=== PATIENT | male | born 1935 | race Caucasian/White ===

== ENCOUNTER 2023-05-13 19:53 | Inpatient (IN) | payer OTHER ==
[~2023-05-13] VITALS: Ht 152.4 cm; Wt 6.8 kg
[2023-05-13] MEDS ORDERED: METHYLPREDNISOLONE SOD SUCC 125MG/2ML (ACT-O-VIAL) IV STA (20:06)
[2023-05-13] MEDS ORDERED: ALBUTEROL (0.083%) 2.5MG/3ML NEB HHN STA (20:06)
[2023-05-13] MEDS ORDERED: IPRATROPIUM BROMIDE (0.02%) 0.5MG/2.5ML NEB HHN STA (20:06)
[2023-05-13 20:40] LABS: HEMATOCRIT. 41.9 % (42.0-52.0); HEMOGLOBIN. 13.6 g/dL (14.0-18.0); MEAN CORPUSCULAR HEMOGLOBIN 30.2 pg (28.0-32.0); MEAN CORPUSCULAR HGB CONC 32.6 g/dL (31.0-37.0); MEAN CORPUSCULAR VOLUME 92.7 fL (80.0-94.0); MEAN PLATELET VOLUME 8.3 fl (7.4-10.4); PLATELET 130 x1000/uL (130-400); RED BLOOD CELL COUNT 4.52 mill/uL (4.7-6.1); RED CELL DISTRIBUTION WIDTH 14.2 % (11.6-14.6); WHITE BLOOD COUNT 8.6 x1000/uL (4.5-11.0)
[2023-05-13 20:43] LABS: DIFFERENTIAL COMMENT 1
[2023-05-13 20:49] LABS: INR 1.1; PROTHROMBIN TIME 12.2 sec (9.6-11.0)
[2023-05-13 20:50] VITALS: RESP 27
[2023-05-13 20:50] LABS: CHLORIDE 99 mEq/L (98-107); INDEX HEMOLYSI 1 (1-3); INDEX ICTERIC 1 (1-4); INDEX LIPEMIC 1 (1-3); POTASSIUM 4.1 mEq/L (3.5-5.1); SODIUM 137 mEq/L (136-145)
[2023-05-13 20:59] LABS: ALANINE AMINOTRANSFERASE 47 IU/L (13-61); ALBUMIN 3.6 g/dL (3.4-5.0); ASPARTATE AMINOTRANSFERASE 56 IU/L (15-37); BILIRUBIN TOTAL 0.9 mg/dL (0.1-1.0); CALCIUM 9.4 mg/dL (8.5-10.1); CARBON DIOXIDE 34 mEq/L (21-32); CREATININE 0.6 mg/dL (0.6-1.3); GLUCOSE 172 mg/dL (70-105); NT PRO B-TYPE NATRIURETIC PEP 3109 pg/mL (5-125); PROTEIN TOTAL 8.8 g/dL (6.0-8.3); UREA NITROGEN BLOOD 13 mg/dL (7-21)
[2023-05-13 21:02] LABS: PLATELET ESTIMATE NORMAL
[2023-05-13 21:12] LABS: LACTIC ACID 2.5 mmol/L (0.4-2.0); TROPONIN I HIGH SENSITIVITY 290 ng/L (<78)
[2023-05-13 21:15] VITALS: RESP 22
[2023-05-13] MEDS ORDERED: CEFTRIAXONE 1GM PREMIX 50 ML IV ONE ×2 (22:15→23:26)
[2023-05-13 22:28] VITALS: RESP 22
[2023-05-13] MEDS ORDERED: CEFTRIAXONE 1GM PREMIX 50 ML IV NR (22:57)
[2023-05-13 23:16] LABS: TROPONIN I HIGH SENSITIVITY 444 ng/L (<78)
[2023-05-14] VITALS (14 sets, daily range): BP systolic 100–150; BP diastolic 65–84; PULSE 75–104; RESP 16–24; TEMP 97–98; O2SAT 95
[2023-05-14 01:37] LABS: TROPONIN I HIGH SENSITIVITY 488 ng/L (<78)
[2023-05-14] MEDS ORDERED: LIDOCAINE HCL 1% 20ML VIAL (Pyxis) INJ INFIL ONE (02:00)
[2023-05-14] MEDS ORDERED: LIDOCAINE HCL 1% 20ML VIAL (Pyxis) INJ ONE (02:06)
[2023-05-14] MEDS ORDERED: MORPHINE SULFATE 4 MG/ML CPJ (NOT FOR IM USE) IV ONE (02:30)
[2023-05-14 06:25] LABS: TROPONIN I HIGH SENSITIVITY 479 ng/L (<78)
[2023-05-14] MEDS ORDERED: ONDANSETRON HCL 4MG/2ML INJ IV PRN (10:15)
[2023-05-14 12:12] LABS: BG BASE EXCESS 1.7 mmol/L (-2.0-2.0); BG CARBOXYHEMOGLOBIN 0.5 % (0.5-1.5); BG DEOXYHEMOGLOBIN 5.3 % (0.0-5.0); BG FRACTION INSPIRED OXYGEN 40; BG HCO3 ACT 28.7 mmol/L (22.0-26.0); BG METHEMOGLOBIN 0.2 % (0.0-1.5); BG OXYGEN SATURATION 94.7 % (92.0-98.5); BG PCO2 55.1 mmHg (35.0-45.0); BG PH 7.334 (7.350-7.450); BG PO2 75.3 mmHg (75.0-100.0); BG SAMPLE SITE RIGHT BRACHIAL; BG TOTAL HEMOGLOBIN 13.4 g/dL (12.0-18.0); BG VENT MODE NASAL CANNULA
[2023-05-14] MEDS ORDERED: IPRATROPIUM/ALBUTEROL 0.5-3(2.5)MG/3ML NEB HHN PRN (12:15)
[2023-05-14] MEDS: FUROSEMIDE 20MG TABLET PO SCH (15:44)
[2023-05-14] MEDS: TAMSULOSIN HCL 0.4MG SR CAPSULE PO SCH (15:46)
[2023-05-14 16:49] LABS: CREATINE KINASE MB FRACTION 5.7 ng/mL (0.5-3.6)
[2023-05-14] MEDS ORDERED: ENOXAPARIN 30MG/0.3ML SYR SUBCUT SCH (18:00)
[2023-05-14] MEDS ORDERED: DEXTROSE 50% WATER 50ML SYRINGE IV PRN (18:00)
[2023-05-14 19:33] LABS: TROPONIN I HIGH SENSITIVITY 967 ng/L (<78)
[2023-05-14] MEDS: BLOOD SUGAR DIAGNOSTIC STRIP TEST SCH (21:00)
[2023-05-14] MEDS: BUDESONIDE 0.5MG/2ML NEB HHN SCH (21:04)
[2023-05-14] MEDS: IPRATROPIUM/ALBUTEROL 0.5-3(2.5)MG/3ML NEB HHN SCH (21:04)
[2023-05-14] MEDS: ENOXAPARIN 80MG/0.8ML SYR SUBCUT SCH (22:03)
[2023-05-14] MEDS: ISOSORBIDE MONONITRATE 30MG TABLET SR 24HR PO SCH (22:04)
[2023-05-14] MEDS: CARVEDILOL 3.125 MG TABLET PO SCH (22:04)
[2023-05-14] MEDS: FAMOTIDINE 20MG TABLET PO SCH (22:04)
[2023-05-14] MEDS: MIRTAZAPINE 15MG TABLET PO SCH (22:05)
[2023-05-15] VITALS (16 sets, daily range): BP systolic 86–133; BP diastolic 55–71; PULSE 78–98; RESP 13–24; TEMP 97.4–98.4; O2SAT 93–99
[2023-05-15] MEDS: IPRATROPIUM/ALBUTEROL 0.5-3(2.5)MG/3ML NEB HHN SCH ×4 (01:19→20:36)
[2023-05-15 07:11] LABS: BASOPHILS % 0.1 % (0.0-2.0); EOSINOPHILS % 0.2 % (0.0-5.0); HEMATOCRIT. 33.2 % (42.0-52.0); HEMOGLOBIN. 10.7 g/dL (14.0-18.0); LYMPHOCYTES % 8.4 % (20.0-50.0); MEAN CORPUSCULAR HEMOGLOBIN 29.8 pg (28.0-32.0); MEAN CORPUSCULAR HGB CONC 32.3 g/dL (31.0-37.0); MEAN CORPUSCULAR VOLUME 92.3 fL (80.0-94.0); MEAN PLATELET VOLUME 8.7 fl (7.4-10.4); MONOCYTES % 9.6 % (2.0-8.0); NEUTROPHILS % 81.7 % (40.0-76.0); PLATELET 113 x1000/uL (130-400); RED CELL DISTRIBUTION WIDTH 13.7 % (11.6-14.6); WHITE BLOOD COUNT 8.1 x1000/uL (4.5-11.0)
[2023-05-15] MEDS: BLOOD SUGAR DIAGNOSTIC STRIP TEST SCH ×4 (07:30→21:00)
[2023-05-15 07:40] LABS: CHLORIDE 103 mEq/L (98-107); INDEX HEMOLYSI 1 (1-3); INDEX ICTERIC 1 (1-4); INDEX LIPEMIC 1 (1-3); POTASSIUM 4.2 mEq/L (3.5-5.1); SODIUM 139 mEq/L (136-145)
[2023-05-15 07:41] LABS: CALCIUM 8.3 mg/dL (8.5-10.1)
[2023-05-15 07:50] LABS: CARBON DIOXIDE 34 mEq/L (21-32); CREATININE 0.7 mg/dL (0.6-1.3); GLUCOSE 113 mg/dL (70-105); PHOSPHORUS 2.1 mg/dL (2.5-4.9); UREA NITROGEN BLOOD 22 mg/dL (7-21)
[2023-05-15] MEDS: CARVEDILOL 3.125 MG TABLET PO SCH ×2 (07:56→22:11)
[2023-05-15] MEDS: ISOSORBIDE MONONITRATE 30MG TABLET SR 24HR PO SCH (07:59)
[2023-05-15] MEDS: FUROSEMIDE 20MG TABLET PO SCH (08:01)
[2023-05-15 08:27] LABS: BG BASE EXCESS 7.3 mmol/L (-2.0-2.0); BG CARBOXYHEMOGLOBIN 0.8 % (0.5-1.5); BG DEOXYHEMOGLOBIN 2.2 % (0.0-5.0); BG FRACTION INSPIRED OXYGEN 32; BG METHEMOGLOBIN 0.2 % (0.0-1.5); BG OXYGEN SATURATION 97.8 % (92.0-98.5); BG OXYHEMOGLOBIN 96.8 % (94.0-97.0); BG PCO2 45.8 mmHg (35.0-45.0); BG PH 7.462 (7.350-7.450); BG PO2 96.1 mmHg (75.0-100.0); BG SAMPLE SITE RIGHT BRACHIAL; BG TOTAL HEMOGLOBIN 12.1 g/dL (12.0-18.0); BG VENT MODE NASAL CANNULA
[2023-05-15 08:36] LABS: TROPONIN I HIGH SENSITIVITY 876 ng/L (<78)
[2023-05-15] MEDS ORDERED: POTASSIUM CHLORIDE 20MEQ TABLET SR PO SCH (09:00)
[2023-05-15] MEDS: BUDESONIDE 0.5MG/2ML NEB HHN SCH ×2 (09:33→20:36)
[2023-05-15] MEDS ORDERED: POTASSIUM-SODIUM PHOSPHATE POWDER PACKET PO NR (12:00)
[2023-05-15] MEDS: TAMSULOSIN HCL 0.4MG SR CAPSULE PO SCH (13:40)
[2023-05-15] MEDS: ENOXAPARIN 80MG/0.8ML SYR SUBCUT SCH ×2 (13:41→22:11)
[2023-05-15] MEDS: CALCIUM CARBONATE/VITAMIN D3 500MG TABLET PO SCH (18:53)
[2023-05-15] MEDS: MIRTAZAPINE 15MG TABLET PO SCH (22:11)
[2023-05-15] MEDS: FAMOTIDINE 20MG TABLET PO SCH (22:11)
[2023-05-16] VITALS (21 sets, daily range): BP systolic 89–143; BP diastolic 48–80; PULSE 73–95; RESP 15–25; TEMP 97.2–98.4; O2SAT 95–98
[2023-05-16] MEDS: IPRATROPIUM/ALBUTEROL 0.5-3(2.5)MG/3ML NEB HHN SCH ×4 (02:03→21:28)
[2023-05-16] MEDS: BLOOD SUGAR DIAGNOSTIC STRIP TEST SCH ×4 (07:34→21:00)
[2023-05-16] MEDS: CALCIUM CARBONATE/VITAMIN D3 500MG TABLET PO SCH ×2 (08:25→17:25)
[2023-05-16] MEDS: FUROSEMIDE 20MG TABLET PO SCH (08:25)
[2023-05-16] MEDS: TAMSULOSIN HCL 0.4MG SR CAPSULE PO SCH (08:25)
[2023-05-16] MEDS: CARVEDILOL 3.125 MG TABLET PO SCH ×2 (08:26→21:00)
[2023-05-16] MEDS: ENOXAPARIN 80MG/0.8ML SYR SUBCUT SCH (08:26)
[2023-05-16 08:47] LABS: CALCIUM 8.7 mg/dL (8.5-10.1); CHLORIDE 106 mEq/L (98-107); INDEX HEMOLYSI 1 (1-3); INDEX ICTERIC 1 (1-4); INDEX LIPEMIC 1 (1-3); POTASSIUM 3.8 mEq/L (3.5-5.1); SODIUM 141 mEq/L (136-145)
[2023-05-16 08:51] LABS: CARBON DIOXIDE 36 mEq/L (21-32); CREATININE 0.8 mg/dL (0.6-1.3); GLUCOSE 95 mg/dL (70-105); PHOSPHORUS 1.9 mg/dL (2.5-4.9); UREA NITROGEN BLOOD 19 mg/dL (7-21)
[2023-05-16 09:08] LABS: BASOPHILS % 0.1 % (0.0-2.0); EOSINOPHILS % 3.1 % (0.0-5.0); HEMATOCRIT. 35.4 % (42.0-52.0); HEMOGLOBIN. 11.5 g/dL (14.0-18.0); LYMPHOCYTES % 18.6 % (20.0-50.0); MEAN CORPUSCULAR HEMOGLOBIN 29.9 pg (28.0-32.0); MEAN CORPUSCULAR HGB CONC 32.6 g/dL (31.0-37.0); MEAN CORPUSCULAR VOLUME 91.8 fL (80.0-94.0); MEAN PLATELET VOLUME 8.7 fl (7.4-10.4); MONOCYTES % 13.6 % (2.0-8.0); NEUTROPHILS % 64.6 % (40.0-76.0); PLATELET 118 x1000/uL (130-400); RED BLOOD CELL COUNT 3.85 mill/uL (4.7-6.1); RED CELL DISTRIBUTION WIDTH 13.6 % (11.6-14.6); WHITE BLOOD COUNT 5.5 x1000/uL (4.5-11.0)
[2023-05-16] MEDS: BUDESONIDE 0.5MG/2ML NEB HHN SCH ×2 (09:27→21:28)
[2023-05-16] MEDS ORDERED: POTASSIUM-SODIUM PHOSPHATE POWDER PACKET PO SCH (10:30)
[2023-05-16] MEDS ORDERED: MAGNESIUM 2 G PREMIX 50 ML IV SCH (11:00)
[2023-05-16] MEDS ORDERED: CARVEDILOL 3.125 MG TABLET PO NR (11:45)
[2023-05-16] MEDS: MIRTAZAPINE 15MG TABLET PO SCH (21:00)
[2023-05-16] MEDS ORDERED: CARVEDILOL 3.125 MG TABLET PO SCH (22:00)
[2023-05-16] MEDS: FAMOTIDINE 20MG TABLET PO SCH (22:38)
[2023-05-17] VITALS (30 sets, daily range): BP systolic 72–122; BP diastolic 35–90; PULSE 65–99; RESP 13–30; TEMP 97.8–98.8; O2SAT 88–95
[2023-05-17] MEDS: IPRATROPIUM/ALBUTEROL 0.5-3(2.5)MG/3ML NEB HHN SCH ×3 (02:48→14:26)
[2023-05-17] MEDS: BLOOD SUGAR DIAGNOSTIC STRIP TEST SCH ×2 (07:41→12:09)
[2023-05-17] MEDS: BUDESONIDE 0.5MG/2ML NEB HHN SCH (08:34)
[2023-05-17] MEDS: CARVEDILOL 3.125 MG TABLET PO SCH (09:00)
[2023-05-17] MEDS: CALCIUM CARBONATE/VITAMIN D3 500MG TABLET PO SCH (09:20)
[2023-05-17] MEDS: FUROSEMIDE 20MG TABLET PO SCH (09:20)
[2023-05-17] MEDS: TAMSULOSIN HCL 0.4MG SR CAPSULE PO SCH (09:21)
[2023-05-17 13:36] LABS: BASOPHILS % 0.2 % (0.0-2.0); EOSINOPHILS % 4.9 % (0.0-5.0); HEMATOCRIT. 33.9 % (42.0-52.0); LYMPHOCYTES % 17.7 % (20.0-50.0); MEAN CORPUSCULAR HGB CONC 32.4 g/dL (31.0-37.0); MEAN CORPUSCULAR VOLUME 92.5 fL (80.0-94.0); MEAN PLATELET VOLUME 8.8 fl (7.4-10.4); MONOCYTES % 14.1 % (2.0-8.0); NEUTROPHILS % 63.1 % (40.0-76.0); PLATELET 119 x1000/uL (130-400); RED BLOOD CELL COUNT 3.67 mill/uL (4.7-6.1); RED CELL DISTRIBUTION WIDTH 13.6 % (11.6-14.6); WHITE BLOOD COUNT 5.5 x1000/uL (4.5-11.0)
[2023-05-17 13:43] LABS: CHLORIDE 105 mEq/L (98-107); INDEX HEMOLYSI 1 (1-3); INDEX ICTERIC 1 (1-4); INDEX LIPEMIC 1 (1-3); POTASSIUM 3.7 mEq/L (3.5-5.1); SODIUM 142 mEq/L (136-145)
[2023-05-17 13:52] LABS: ALANINE AMINOTRANSFERASE 23 IU/L (13-61); ALBUMIN 2.5 g/dL (3.4-5.0); ASPARTATE AMINOTRANSFERASE 26 IU/L (15-37); BILIRUBIN TOTAL 0.6 mg/dL (0.1-1.0); CALCIUM 8.4 mg/dL (8.5-10.1); CARBON DIOXIDE 36 mEq/L (21-32); CREATININE 0.7 mg/dL (0.6-1.3); GLUCOSE 124 mg/dL (70-105); PROTEIN TOTAL 6.4 g/dL (6.0-8.3); UREA NITROGEN BLOOD 18 mg/dL (7-21)
== END 2023-05-17 17:40 | disposition short-term general hospital (02) | DRG 199 ==
LOC: ER 19:53 → EDBD 19:53 → MICUSO 22:04 → EDBEDREQ 22:10 → 5EST 05-14 10:30
PROVIDERS: ADMIT Internal Medicine; ATTEND Internal Medicine
PROC: 5A09357 Assistance with Respiratory Ventilation, Less than 24 Consecutive Hours, Continuous Positive Airway Pressure (ICD-10-PCS; principal; 2023-05-13)
PROC: 5A09357 Assistance with Respiratory Ventilation, Less than 24 Consecutive Hours, Continuous Positive Airway Pressure (ICD-10-PCS; 2023-05-14)
PROC: 5A09357 Assistance with Respiratory Ventilation, Less than 24 Consecutive Hours, Continuous Positive Airway Pressure (ICD-10-PCS; 2023-05-16)
PROC: 5A09357 Assistance with Respiratory Ventilation, Less than 24 Consecutive Hours, Continuous Positive Airway Pressure (ICD-10-PCS; 2023-05-17)
DX: J93.83 Other pneumothorax (principal); I21.A1 Myocardial infarction type 2; I50.43 Acute on chronic combined systolic (congestive) and diastolic (congestive) heart failure; J96.00 Acute respiratory failure, unspecified whether with hypoxia or hypercapnia; E87.29 Other acidosis; I42.0 Dilated cardiomyopathy; D64.9 Anemia, unspecified; Z20.822 Contact with and (suspected) exposure to COVID-19; I11.0 Hypertensive heart disease with heart failure; J44.9 Chronic obstructive pulmonary disease, unspecified; N40.0 Benign prostatic hyperplasia without lower urinary tract symptoms; Z87.891 Personal history of nicotine dependence
CPT/HCPCS: 36415; 36600; 71045; 71250; 80048; 80053; 82375; 82550; 82553; 82803; 82805; 82962; 83605; 83735; 83880; 84100; 84484; 85025; 87426; 87804; 93005; 93306; 94640; 94660; 99291; J0696; J1650; J2270; J2930; J3475; J3490; J7626

== ENCOUNTER 2025-04-27 15:36 | Emergency (ER) | payer MEDICARE, OTHER ==
[~2025-04-27] VITALS: Ht 182.9 cm; Wt 73.0 kg
[~2025-04-27 15:36] MED LIST: CALC1CAP22 PO; CARV3.1242 MT; CYAN50007 PO; FAMO20TA8 PO; FLUT1BLS8 IH; FOLI-43 PO; FURO-152 PO; IPRA3AMP9 NEB; MIRT7.5T11 PO; POTA-202 PO; TAMS-54 PO
[2025-04-27 16:08] VITALS: PULSE 88; RESP 18; O2SAT 96
[2025-04-27] MEDS: ALBUTEROL (0.083%) 2.5MG/3ML NEB HHN ONE (16:08)
[2025-04-27] MEDS: IPRATROPIUM BROMIDE (0.02%) 0.5MG/2.5ML NEB HHN ONE (16:09)
[2025-04-27] MEDS: METHYLPREDNISOLONE SOD SUCC 125MG/2ML (ACT-O-VIAL) IV ONE (16:36)
[2025-04-27 16:56] LABS: BASOPHILS % 0.3 % (0.0-2.0); EOSINOPHILS % 1.6 % (0.0-5.0); HEMATOCRIT. 39.4 % (42.0-52.0); HEMOGLOBIN. 12.5 g/dL (14.0-18.0); LYMPHOCYTES % 13.6 % (20.0-50.0); MEAN PLATELET VOLUME 8.5 fl (7.4-10.4); MONOCYTES % 7.5 % (2.0-8.0); NEUTROPHILS % 77.0 % (40.0-76.0); PLATELET 64 x1000/uL (130-400); RED BLOOD CELL COUNT 4.18 mill/uL (4.7-6.1); RED CELL DISTRIBUTION WIDTH 16.0 % (11.6-14.6)
[2025-04-27 17:07] LABS: CREATININE 0.8 mg/dL (0.6-1.3)
[2025-04-27 17:08] LABS: TROPONIN I HIGH SENSITIVITY 37 ng/L (3.0-53); UREA NITROGEN BLOOD 10 mg/dL (9-23)
[2025-04-27 17:09] LABS: ASPARTATE AMINOTRANSFERASE 55 IU/L (<34)
[2025-04-27 17:10] LABS: BILIRUBIN TOTAL 0.5 mg/dL (0.1-1.0); PHOSPHORUS 3.2 mg/dL (2.5-4.9); PROTEIN TOTAL 6.5 g/dL (6.0-8.3)
[2025-04-27 20:45] VITALS: BP 117/77; PULSE 72; RESP 16; TEMP 36.6; O2SAT 97
== END 2025-04-27 20:46 | disposition short-term general hospital (02) ==
LOC: ER 15:36 → CMPBEDREQ 04-28 19:33
DX: R53.1 Weakness (principal); J44.1 Chronic obstructive pulmonary disease with (acute) exacerbation; E78.5 Hyperlipidemia, unspecified; I10 Essential (primary) hypertension; Z20.822 Contact with and (suspected) exposure to COVID-19; Z79.899 Other long term (current) drug therapy; Z79.51 Long term (current) use of inhaled steroids
CPT/HCPCS: 99285; 96374; 71045; 87426; 80053; 83880; 83735; 84100; 85025; 84484; 36415; 94640; 93005; J2919; 94070; 94664; A4606

== ENCOUNTER 2025-05-28 23:54 | Emergency (ER) | payer OTHER ==
[~2025-05-28] VITALS: Ht 170.2 cm; Wt 73.0 kg
[2025-05-29 00:02] VITALS: O2SAT 95
[2025-05-29 01:02] LABS: CREATININE 0.7 mg/dL (0.6-1.3); UREA NITROGEN BLOOD 15 mg/dL (9-23)
[2025-05-29 01:03] LABS: ASPARTATE AMINOTRANSFERASE 56 IU/L (<34); TROPONIN I HIGH SENSITIVITY 38 ng/L (3.0-53)
[2025-05-29 01:04] LABS: BILIRUBIN DIRECT 0.3 mg/dL (<=3.0)
[2025-05-29 01:05] LABS: BILIRUBIN TOTAL 0.8 mg/dL (0.1-1.0); PROTEIN TOTAL 6.8 g/dL (6.0-8.3)
[2025-05-29 01:06] LABS: HEMATOCRIT. 36.9 % (42.0-52.0); HEMOGLOBIN. 11.8 g/dL (14.0-18.0); MEAN PLATELET VOLUME 8.6 fl (7.4-10.4); PLATELET 116 x1000/uL (130-400); RED BLOOD CELL COUNT 3.97 mill/uL (4.7-6.1); RED CELL DISTRIBUTION WIDTH 16.0 % (11.6-14.6)
[2025-05-29 03:16] LABS: INR 1.1
[2025-05-29 03:50] LABS: TROPONIN I HIGH SENSITIVITY 48 ng/L (3.0-53)
[2025-05-29 05:10] VITALS: BP 126/63; PULSE 110; RESP 20; TEMP 36.9; O2SAT 97
[2025-05-29 05:43] LABS: BAND% 3.0 % (1.0-6.0); LYMPHOCYTES % MANUAL 38.0 % (20.0-50.0); MONOCYTES % MANUAL 12.0 % (2.0-8.0); NEUTROPHILS % MANUAL 47.0 % (45.0-75.0)
[2025-05-29 05:44] LABS: PLATELET ESTIMATE DECREASED
== END 2025-05-29 05:32 | disposition short-term general hospital (02) ==
LOC: ER 23:54 → CMPBEDREQ 05-29 08:14
DX: R55 Syncope and collapse (principal); S19.9XXA Unspecified injury of neck, initial encounter; R06.02 Shortness of breath; J44.9 Chronic obstructive pulmonary disease, unspecified; W19.XXXA Unspecified fall, initial encounter; Y93.89 Activity, other specified; Y92.89 Other specified places as the place of occurrence of the external cause; Y99.8 Other external cause status
CPT/HCPCS: 36415; 70486; 71045; 80048; 80076; 83735; 83880; 84484; 85025; 85379; 93005; 99285; 99291; A4615